=== PATIENT | male | born 1955 | race Caucasian/White ===

== ENCOUNTER 2017-06-03 08:26 | Emergency (ER) | payer BC ==
[~2017-06-03] VITALS: Ht 172.7 cm; Wt 78.0 kg
[2017-06-03 08:30] VITALS: Ht 172.7 cm; Wt 78.0 kg
[2017-06-03] MEDS ORDERED: HYDR-3652 PO (09:31)
[2017-06-03] MEDS ORDERED: FLUT9.9S NASAL (09:31)
[2017-06-03] MEDS ORDERED: IBUP800T25 PO (09:31)
--- NOTE | 2017-06-03 09:36 | ERD ---
ER Documentation Chief Complaint Chief Complaint Nasal congestion and cough for 4 days HPI This is a very pleasant 61-year-old male who presents to the emergency room a nasal congestion for 4 days. The patient describes nasal congestion and cough. It is slightly productive of yellowish sputum but he denies any chest congestion and feels that it is coming from his nose. No significant shortness of breath. He denies any fevers or chills. 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 He is coughing through the night and having difficulty sleeping. Denies any dyspnea on exertion, no difficulty swallowing and no recent travel or sick contacts or antibiotics. ROS All systems reviewed and are negative except as per history of present illness. Medications Home Meds Active Scripts Ibuprofen* (Motrin*) 800 Mg Tab, 800 MG PO Q6H Y for PAIN AND OR ELEVATED TEMP, #30 TAB Prov:PA BLAND MD 06/03/17 Hydrocodone Bit/Homatrop Me-Br (Tussigon 5-1.5 mg Tablet) 1 Each Tablet, 1 EACH PO BID Y for COUGH, #10 TAB Prov:PA BLAND MD 06/03/17 Fluticasone Propionate (Flonase Allergy Relief) 9.9 Ml [place].susp, 1 SPRAY NASAL BID for 7 Days, #1 BOTTLE TO EACH NOSTRIL Prov:PA BLAND MD 06/03/17 PMhx/Soc Medical and Surgical Hx: pt denies Medical Hx, pt denies Surgical Hx Hx Alcohol Use: Yes ([facility]) Hx Substance Use: No Hx Tobacco Use: Yes Smoking Status: Former smoker FmHx Family History: No diabetes Physical Exam Vitals Vital Signs Date Time Temp Pulse Resp B/P Pulse Ox O2 Delivery O2 Flow Rate FiO2 06/03/17 08:30 98.9 85 19 136/79 100 Physical Exam General: Well developed, well nourished, no acute distress Head: Normocephalic, atraumatic. Eyes: Pupils equally reactive, EOM intact ENT: Moist mucous membranes, posterior pharynx without swelling or exudates, uvula midline, tympanic membranes are nonbulging bilaterally, slightly swollen nasal turbinates without drainage or discharge Neck: Supple, no lymphadenopathy Respiratory: Lungs clear bilaterally, no distress Cardiovascular: RRR, no murmurs, rubs, or gallops Abdominal: Soft, non-tender, non-distended, no peritoneal signs : Deferred MSK: No edema, no unilateral swelling, 5/5 strength Neurologic: Alert and oriented, moving all extremities, normal speech, no focal weakness, no cerebellar signs Skin: No rash Psych: Normal mood Procedures/MDM The patient's clinical presentation is very consistent with an acute viral syndrome. The patient does have nasal congestion. His cough is only productive likely secondary to upper airway process. His lungs are crystal clear he has no respiratory distress and normal oxygen saturation and no fever. I do not believe a chest x-ray is indicated. I do not believe antibiotics are indicated. This is likely a viral process of an upper respiratory tract infection. Symptom control be appropriate. The patient does not exhibit any clinical signs or symptoms concerning for serious bacterial infection or systemic illness. Based on history and clinical exam findings the patient does not appear to have evidence of pneumonia, strep pharyngitis, urinary tract infection, bacteremia, sepsis, or meningitis. For these reasons I do not believe it is necessary to obtain laboratory testing or diagnostic imaging. I believe it would be appropriate for symptom control, and close outpatient primary care follow-up. We discussed follow up with the patient's primary care doctor within 24 to 48 hours as needed. We also discussed return to the emergency room for worsening symptoms or worsening condition. Discharge Medications: Flonase, Tussigon, Motrin We discussed the use of narcotics including avoidance of operating heavy machinery and driving as well as its addictive properties. Departure Diagnosis: Primary Impression: Viral URI with cough Condition: Stable Patient Instructions: Uri, Viral, No Abx (Adult) Referrals: [facility] YOU HAVE RECEIVED A MEDICAL SCREENING EXAM AND THE RESULTS INDICATE THAT YOU DO NOT HAVE A CONDITION THAT REQUIRES URGENT TREATMENT IN THE EMERGENCY DEPARTMENT. FURTHER EVALUATION AND TREATMENT OF YOUR CONDITION CAN WAIT UNTIL YOU ARE SEEN IN YOUR DOCTORS OFFICE WITHIN THE NEXT 1-2 DAYS. IT IS YOUR RESPONSIBILITY TO MAKE AN APPOINTMENT FOR FOLOW-UP CARE. IF YOU HAVE A PRIMARY DOCTOR --you should call your primary doctor and schedule an appointment IF YOU DO NOT HAVE A PRIMARY DOCTOR YOU CAN CALL OUR PHYSICIAN REFERRAL HOTLINE AT IF YOU CAN NOT AFFORD TO SEE A PHYSICIAN YOU CAN CHOSE FROM THE FOLLOWING [facility] [address] [facility] [address] [facility] [facility] [address] [facility] [address] [facility] [address] [facility]. [facility] [address] [facility]. [facility] YOU HAVE RECEIVED A MEDICAL SCREENING EXAM AND THE RESULTS INDICATE THAT YOU DO NOT HAVE A CONDITION THAT REQUIRES URGENT TREATMENT IN THE EMERGENCY DEPARTMENT. FURTHER EVALUATION AND TREATMENT OF YOUR CONDITION CAN WAIT UNTIL YOU ARE SEEN IN YOUR DOCTORS OFFICE WITHIN THE NEXT 1-2 DAYS. IT IS YOUR RESPONSIBILITY TO MAKE AN APPOINTMENT FOR FOLOW-UP CARE. IF YOU HAVE A PRIMARY DOCTOR --you should call your primary doctor and schedule and appointment IF YOU DO NOT HAVE A PRIMARY DOCTOR YOU CAN CALL OUR PHYSICIAN REFERRAL HOTLINE AT . IF YOU CAN NOT AFFORD TO SEE A PHYSICIAN YOU CAN CHOSE FROM THE FOLLOWING [facility] INSTITUTIONS: [facility] [address] [place] [address] [facility] [address] [place] [address] [facility] + [facility] [address] [place] [address] Additional Instructions: Call your primary care doctor TOMORROW for an appointment during the next 1 WEEK.Tell the collector of port that you were referred from this facility.See the doctor sooner or return here if your condition worsens before your appointment time. PA BLAND MD Jun 03, 2017 09:36
== END 2017-06-03 09:38 | disposition home or self-care (01) ==
LOC: FTE 08:26
DX: J06.9 Acute upper respiratory infection, unspecified (principal); Z87.891 Personal history of nicotine dependence
CPT/HCPCS: 99283